=== PATIENT | male | born 1990 | race Caucasian/White ===

== ENCOUNTER 2023-09-23 17:01 | Emergency (ER) | payer OTHER ==
[2023-09-23 17:28] VITALS: BP 120/77; PULSE 91; RESP 18; TEMP 98; BMI 38.7
[2023-09-23] MEDS ORDERED: KETOROLAC TROMETHAMINE 15 MG/ML VIAL ONE (18:29)
[2023-09-23] MEDS: KETOROLAC TROMETHAMINE 15 MG/ML VIAL IVPUSH ONE (18:40)
[2023-09-23 18:47] LABS: BASO % 0.6 % (0-2.0); EOS % 0.7 % (0-4.5); HEMATOCRIT 46.1 % (35.4-49); HEMOGLOBIN 15.2 GM/dL (11.7-16.9); LYMPH % 37.5 % (8-40); MCH 29.7 pg (25.7-33.7); MCHC 33.1 g/dl (32.0-35.9); MEAN CELL VOLUME 89.9 fl (80-96); MEAN PLT VOLUME 7.6 fl (7.5-11.1); MONO % 10.3 % (3.8-10.2); NEUT % 50.9 % (42.8-82.8); PLATELET COUNT 319 10^3/uL (134-434); RBC 5.12 M/mm3 (4.00-5.60); RDW 14.4 % (11.9-15.9); WHITE BLOOD COUNT 8.1 K/mm3 (4.0-10.0)
[2023-09-23 18:56] LABS: PROTHROMBIN TIME (PATIENT) 11.3 SEC (9.7-13.0)
[2023-09-23 18:58] LABS: ACTIVATED PTT 37.4 SECONDS (25.2-36.5)
[2023-09-23 19:05] LABS: CHLORIDE 105 mmol/L (98-107); SODIUM 133 mmol/L (136-145)
[2023-09-23 19:07] LABS: CALCIUM 9.1 mg/dL (8.5-10.1)
[2023-09-23 19:08] LABS: ALBUMIN 3.6 g/dl (3.4-5.0); BLOOD UREA NITROGEN 14.2 mg/dL (7-18); CO2 28 mmol/L (21-32); GLUCOSE,RANDOM 81 mg/dL (74-106); MAGNESIUM 2.1 mg/dL (1.8-2.4)
[2023-09-23 19:12] LABS: BILIRUBIN,TOTAL 0.6 mg/dL (0.2-1); TOT PROT 7.8 g/dl (6.4-8.2)
[2023-09-23 19:13] LABS: ALK PHOS 48 U/L (45-117)
[2023-09-23 19:16] LABS: N-TERMINAL BNP 8.6 pg/ml (5-125)
[2023-09-23 19:19] LABS: ANION GAP 0 mmol/L (4-13); POTASSIUM 6.8 mmol/L (3.5-5.1); SGOT/AST 80 U/L (15-37); SGPT/ALT 54 U/L (13-61)
[2023-09-23 19:55] LABS: POTASSIUM 3.7 mmol/L (3.5-5.1)
[2023-09-23 19:56] LABS: CALCIUM 9.5 mg/dL (8.5-10.1)
[2023-09-23 19:57] LABS: BLOOD UREA NITROGEN 14.7 mg/dL (7-18)
== END 2023-09-23 21:26 | disposition home or self-care (01) ==
LOC: JER 17:01
PROC: 3E0303Z Introduction of Anti-inflammatory into Peripheral Vein, Open Approach (ICD-10-PCS; principal; 2023-09-23)
DX: R07.9 Chest pain, unspecified (principal); R06.02 Shortness of breath; R61 Generalized hyperhidrosis; Z20.822 Contact with and (suspected) exposure to COVID-19
CPT/HCPCS: 0241U-QW; 36415; 71046-TC-FY; 80048; 80053; 83690; 83735; 83880; 84484; 85025; 85610; 85730; 93005; 93010; 99285-25